=== PATIENT | female | born 1955 | race American Indian/Alaskan Native ===

== ENCOUNTER 2017-02-12 13:57 | Outpatient (CLI) | payer MEDICAID ==
--- NOTE | 2017-02-12 14:48 | XRay Report ---
Left hip 2 views. Findings: There is moderate to severe narrowing of the joint space. Bony mineralization is normal. No acute findings are seen. Markedly thick soft tissues are noted. Impression: Moderate osteoarthritis.
--- NOTE | 2017-02-13 10:22 | XRay Report ---
XRAY LEFT HIP THREE VIEWS: 02/12/17 13:57:00 CLINICAL: Left hip pain. The patient had a standing examination done earlier and returned for a supine examination. FINDINGS: Moderate osteoarthritis of the left hip with superior joint space narrowing and acetabular eburnation with a small superolateral osteophytes. No fracture or dislocation. Similar osteoarthritis in the right hip. The pelvic bones are intact. Normal SI joints. Normal soft tissues. IMPRESSION: Moderate osteoarthritis of both hips.
== END 2017-02-12 13:58 | disposition home or self-care (01) ==
LOC: SPVIMAG 13:57
PROVIDERS: ATTEND Orthopaedic Surgery Sports Medicine
DX: M16.0 Bilateral primary osteoarthritis of hip (principal); I10 Essential (primary) hypertension; J45.909 Unspecified asthma, uncomplicated

== ENCOUNTER 2018-01-08 09:40 | Outpatient (CLI) | payer MEDICAID ==
[2018-01-08 10:20] LABS: Blood Urea Nitrogen 19 mg/dL (7-17)
--- NOTE | 2018-01-08 13:48 | Cat Scan Report ---
CT HEAD WITH AND WITHOUT CONTRAST: HISTORY: Headaches, dizziness. TECHNIQUE: Sequential CT images with contrast. FINDINGS: Images obtained show bilateral prominence of the sulci and ventricles. There are no abnormal intra- or extra-axial blood or fluid collections. There are no focal masses or evidence of mass effect. The joya white matter differentiation appears within normal limits. Regions of periventricular decreased attenuation are consistent with microangiopathic ischemic disease. The posterior fossa structures including the fourth ventricle, cerebellum, and brainstem appear normal. No abnormal enhancement following IV contrast. IMPRESSION: Evidence of atrophy and microangiopathic ischemic disease. No acute intracranial process noted.
== END 2018-01-08 09:41 | disposition home or self-care (01) ==
LOC: CT 09:40
PROVIDERS: ATTEND Internal Medicine
DX: I99.8 Other disorder of circulatory system (principal); G31.9 Degenerative disease of nervous system, unspecified; I10 Essential (primary) hypertension; J45.909 Unspecified asthma, uncomplicated; M19.90 Unspecified osteoarthritis, unspecified site
CPT/HCPCS: 36415; 70470; 82565; 84520; Q9967

== ENCOUNTER 2018-08-28 07:39 | Outpatient (CLI) | payer MEDICAID ==
[2018-08-28 08:19] LABS: BUN/Creatinine Ratio 24; Blood Urea Nitrogen 22 mg/dL (7-17); Calcium 8.8 mg/dL (8.4-10.2); Hemolysis Index 1
--- NOTE | 2018-08-28 09:37 | XRay Report ---
AP PELVIS: HISTORY: pain. Normal bone mineralization. No evidence for pelvic fracture, bone lesion or diastasis. Moderate osteoarthritic changes are identified at both hips. No evidence for osteonecrosis. IMPRESSION: Moderate osteoarthritis of both hips.
--- NOTE | 2018-08-28 09:38 | XRay Report ---
KNEES STANDING AP BILATERAL History: Pain. Findings: Normal bone mineralization. No significant varus or valgus deformity. Kals-rh-zokpcqin osteoarthritic changes are identified which are most pronounced in the medial compartment of both knees. Mild tibial spine spurring is also identified. No fracture or bone lesion is appreciated. Impression: Mild to moderate osteoarthritis in both knees.
== END 2018-08-28 07:40 | disposition home or self-care (01) ==
LOC: XRAY 07:39
PROVIDERS: ATTEND Orthopaedic Surgery
DX: M17.0 Bilateral primary osteoarthritis of knee (principal); M16.0 Bilateral primary osteoarthritis of hip; I10 Essential (primary) hypertension; J45.909 Unspecified asthma, uncomplicated
CPT/HCPCS: 36415; 72170; 73565; 80048; 83735

== ENCOUNTER 2019-01-22 06:52 | Emergency (ER) | payer MEDICARE ==
--- NOTE | 2019-01-22 08:26 | Emergency Department Report ---
ED General Adult HPI - General Chief complaint: Dizziness Stated complaint: DIZZINESS Time Seen by Provider: 01/22/19 08:03 Source: patient Mode of arrival: Wheelchair Limitations: No Limitations - History of Present Illness Initial comments: This is a 63-year-old female with somewhat recurrent symptoms. She states that she had similar symptoms and was told she was dehydrated a month ago. She's had similar such episodes. She states that she is prediabetic. She states that she vomited 3 times beginning at 10:00 yesterday but not recently. She is not complaining of ongoing nausea. She had some lower abdominal discomfort while she was vomiting but it did not persist. She complains of vague dizziness. She did not take her blood pressure medicine today. She denies fever or chills. She has had fever or chills. He denies headache. She denies any focal neurological change or difficulty with coordination or gait. She says that she's had several similar episodes of vomiting and dizziness. -: Gradual, hour(s) Location: abdomen (as above described in the suprapubic area) Severity scale (0 -10): 0 Quality: aching Consistency: now resolved Improves with: none Worsens with: none Associated Symptoms: denies other symptoms, weakness (weakness and dizziness) Treatments Prior to Arrival: none (did not take blood pressure medicine) - Related Data Home Medications Medication Instructions Recorded Confirmed Last Taken Tramadol HCl [traMADol] 1 tab PO PRN 03/22/14 03/22/14 Unknown dilTIAZem CD [Cardizem CD] 1 cap PO DAILY 03/22/14 03/22/14 03/22/14 Allergies Allergy/AdvReac Type Severity Reaction Status Date / Time sulfamethoxazole Allergy Swelling Verified 03/22/14 14:49 [From Bactrim] trimethoprim [From Bactrim] Allergy Swelling Verified 03/22/14 14:49 ED Review of Systems ROS: Stated complaint: DIZZINESS Other details as noted in HPI Constitutional: weakness. denies: chills, fever Eyes: denies: eye pain, eye discharge, vision change ENT: denies: ear pain, throat pain Respiratory: denies: cough, shortness of breath, wheezing Cardiovascular: denies: chest pain, palpitations Endocrine: no symptoms reported Gastrointestinal: as per HPI, abdominal pain, nausea, vomiting. denies: diarrhea Genitourinary: denies: urgency, dysuria, discharge Musculoskeletal: denies: back pain, joint swelling, arthralgia Skin: denies: rash, lesions Neurological: denies: headache, weakness, paresthesias Psychiatric: denies: anxiety, depression Hematological/Lymphatic: denies: easy bleeding, easy bruising ED Past Medical Hx - Past Medical History Hx Hypertension: Yes Hx Arthritis: Yes Hx Asthma: Yes Hx Tuberculosis: No Hx HIV: No Additional medical history: "Prediabetes" - Social History Smoking Status: Never Smoker Substance Use Type: Alcohol, Marijuana - Medications Home Medications: Home Medications Medication Instructions Recorded Confirmed Last Taken Type Tramadol HCl [traMADol] 1 tab PO PRN 03/22/14 03/22/14 Unknown History dilTIAZem CD [Cardizem CD] 1 cap PO DAILY 03/22/14 03/22/14 03/22/14 History ED Physical Exam - General Limitations: Physical Limitation General appearance: alert, in no apparent distress, obese - Head Head exam: Present: atraumatic, normocephalic - Eye Eye exam: Present: normal appearance. Absent: scleral icterus - ENT ENT exam: Present: mucous membranes moist - Neck Neck exam: Present: normal inspection. Absent: tenderness, meningismus - Respiratory Respiratory exam: Present: normal lung sounds bilaterally. Absent: respiratory distress - Cardiovascular Cardiovascular Exam: Present: regular rate, normal rhythm. Absent: systolic murmur, diastolic murmur, rubs, gallop - GI/Abdominal GI/Abdominal exam: Present: soft, normal bowel sounds. Absent: distended, tenderness, guarding, rebound, rigid - Extremities Exam Extremities exam: Present: normal inspection - Back Exam Back exam: Present: normal inspection - Neurological Exam Neurological exam: Present: alert, oriented X3, CN II-XII intact. Absent: motor sensory deficit - Psychiatric Psychiatric exam: Present: normal affect, normal mood - Skin Skin exam: Present: warm, dry, intact, normal color. Absent: rash ED Course Vital Signs 01/22/19 01/22/19 01/22/19 06:57 07:16 07:55 Temperature 97.9 F 98.7 F Pulse Rate 100 H 95 H 81 Respiratory 20 18 Rate Blood Pressure 177/101 Blood Pressure 189/121 192/84 [Right] O2 Sat by Pulse 96 100 Oximetry 01/22/19 01/22/19 01/22/19 08:26 09:25 10:55 Temperature Pulse Rate Respiratory 14 Rate Blood Pressure Blood Pressure 181/80 173/84 [Right] O2 Sat by Pulse 99 Oximetry ED Medical Decision Making - Lab Data Result diagrams: 01/22/19 08:24 01/22/19 08:24 Laboratory Results - last 24 hr 01/22/19 01/22/19 01/22/19 08:24 08:24 08:24 WBC 5.0 RBC 4.12 Hgb 12.6 Hct 38.3 MCV 93 MCH 31 MCHC 33 RDW 15.4 H Plt Count 229 Lymph % (Auto) 26.0 [place] % (Auto) 8.4 H Eos % (Auto) 0.3 Baso % (Auto) 0.4 Lymph # 1.3 [place] # 0.4 Eos # 0.0 Baso # 0.0 Seg Neutrophils % 64.9 Seg Neutrophils # 3.3 PT 13.0 INR 0.99 APTT 28.2 Sodium 142 Potassium 3.5 L Chloride 104.9 Carbon Dioxide 26 Anion Gap 15 BUN 12 Creatinine 0.8 Estimated GFR > 60 BUN/Creatinine Ratio 15 Glucose 107 H Calcium 9.0 Magnesium 2.00 Total Bilirubin 0.20 Direct Bilirubin < 0.2 Indirect Bilirubin 0.0 AST 11 ALT 14 Alkaline Phosphatase 116 Total Protein 7.2 Albumin 3.9 Albumin/Globulin Ratio 1.2 - EKG Data -: EKG Interpreted by [facility] EKG shows normal: sinus rhythm, axis, intervals, QRS complexes, ST-T waves Rate: normal - EKG Data Interpretation: no acute changes - Radiology Data Radiology results: report reviewed (CT the head no acute process) Critical care attestation.: If time is entered above; I have spent that time in minutes in the direct care of this critically ill patient, excluding procedure time. ED Disposition Clinical Impression: Generalized weakness, Poorly controlled blood pressure Disposition: DC-01 TO HOME OR SELFCARE Is pt being admited?: No Does the pt Need Aspirin: No Condition: Stable Instructions: Hypertension (ED), Weakness (ED) Additional Instructions: Transferred to the emergency department any acute change or problem. Follow-up with Dr. Black. Be sure to take blood pressure medication. Recommend 2 baby aspirin a day. Referrals: PRIMARY CARE, [Primary Care Provider] - 2-3 Days EBRKLEY BLACK MD [Staff Physician] - 2-3 Days Time of Disposition: 12:14
[2019-01-22 08:44] LABS: Basophils % (Auto) 0.4 % (0.0-1.8); Eosinophils % (Auto) 0.3 % (0.0-4.3); Hematocrit 38.3 % (30.3-42.9); Hemoglobin 12.6 gm/dl (10.1-14.3); Lymphocytes # (Auto) 1.3 K/mm3 (1.2-5.4); Mean Corpuscular HGB Conc 33 % (30-34); Mean Corpuscular Volume 93 fl (79-97); Monocytes # (Auto) 0.4 K/mm3 (0.0-0.8); Monocytes % (Auto) 8.4 % (0.0-7.3); Platelet Count 229 K/mm3 (140-440); Red Blood Count 4.12 M/mm3 (3.65-5.03); Red Cell Distribution Width 15.4 % (13.2-15.2)
[2019-01-22 08:45] LABS: INR 0.99 (0.87-1.13)
[2019-01-22 08:46] LABS: Partial Thromboplastin Time 28.2 Sec. (24.2-36.6)
--- NOTE | 2019-01-22 08:51 | Cat Scan Report ---
CT HEAD WITHOUT CONTRAST INDICATION : Dizziness, OLIVA, elev BP. TECHNIQUE: Axial imaging performed from the skull apex through the skull base without the use of con trast. All CT scans at this location are performed using CT dose reduction for ALARA by means of aut omated exposure control. COMPARISON: 01/08/2018 FINDINGS: Parenchyma: No acute intracranial hemorrhage or parenchymal abnormality. Moderate chronic white león er hypodensities unchanged compared to the last exam. Chronic right basal ganglia infarcts. No mass, hemorrhage or edema. Ventricles: Ventricles are normal in size and appear symmetric. Soft tissues: Soft tissues including the orbits appear normal. Bones: No acute osseous abnormality. Sinuses: Sinuses and mastoid air cells are clear. IMPRESSION: 1. No acute change. 2. Moderate chronic white matter microangiopathy and chronic right basal ganglia infarcts. Signer Name: Noman Vee MD Signed: 01/22/2019 8:46 AM Workstation Name: [id number]
[2019-01-22 08:58] LABS: Alanine Aminotransferase 14 units/L (7-56); Albumin 3.9 g/dL (3.9-5); BUN/Creatinine Ratio 15; Blood Urea Nitrogen 12 mg/dL (7-17); Hemolysis Index 0
[2019-01-22 08:59] LABS: Bilirubin,Direct < 0.2 mg/dL (0-0.2)
[2019-01-22 10:56] VITALS: BP 173/84
[2019-01-22] MEDS ORDERED: amLODIPine 5 MG TAB PO ONE (12:15)
== END 2019-01-22 12:40 | disposition home or self-care (01) ==
LOC: ED 06:52
DX: R53.1 Weakness (principal); R42 Dizziness and giddiness; R11.10 Vomiting, unspecified; R10.30 Lower abdominal pain, unspecified; I10 Essential (primary) hypertension; M19.90 Unspecified osteoarthritis, unspecified site; J45.909 Unspecified asthma, uncomplicated; F12.10 Cannabis abuse, uncomplicated; Z88.2 Allergy status to sulfonamides
CPT/HCPCS: 36415; 70450; 80048; 80076; 83735; 85025; 85610; 85730; 93005; 93010

== ENCOUNTER 2020-01-18 11:31 | Emergency (ER) | payer MEDICARE ==
[2020-01-18 11:37] VITALS: BP 163/103
--- NOTE | 2020-01-18 11:39 | Emergency Department Report ---
Blank Doc - Documentation Documentation: 64-year-old female that presents generlzied fatigue and numbness. Patient sarita casas has not been taking metformin for a week. This initial assessment/diagnostic orders/clinical plan/treatment(s) is/are subject to change based on patient's health status, clinical progression and re- assessment by fellow clinical providers in the ED. Further treatment and workup at subsequent clinical providers discretion. Patient/guardians urged not to elope from the ED as their condition may be serious if not clinically assessed and managed. Initial orders include: 1- Patient sent to [facility] for further evaluation and treatment 2- labs 3- UA
[2020-01-18 12:27] LABS: Alanine Aminotransferase 20 units/L (7-56); Albumin 4.1 g/dL (3.9-5); BUN/Creatinine Ratio 23; Basophils % (Auto) 0.3 % (0.0-1.8); Blood Urea Nitrogen 18 mg/dL (7-17); Eosinophils % (Auto) 0.5 % (0.0-4.3); Hematocrit 38.7 % (30.3-42.9); Hemoglobin 12.7 gm/dl (10.1-14.3); Hemolysis Index 2; Lymphocytes # (Auto) 2.1 K/mm3 (1.2-5.4); Lymphocytes % (Auto) 33.4 % (13.4-35.0); Mean Corpuscular HGB Conc 33 % (30-34); Mean Corpuscular Volume 93 fl (79-97); Monocytes # (Auto) 0.6 K/mm3 (0.0-0.8); Monocytes % (Auto) 9.1 % (0.0-7.3); Platelet Count 264 K/mm3 (140-440); Red Blood Count 4.18 M/mm3 (3.65-5.03); Red Cell Distribution Width 16.1 % (13.2-15.2)
--- NOTE | 2020-01-18 12:57 | Emergency Department Report ---
ED General Adult HPI - General Chief complaint: Extremity Problem,Nontraumatic Stated complaint: CONGESTION/CHEST PX/LEG NUMB Time Seen by Provider: 01/18/20 11:36 Source: patient Mode of arrival: Ambulatory Limitations: No Limitations - History of Present Illness Initial comments: 64-year-old female, history of asthma, hypertension, diabetes, neuropathy, presents to ED with complaint of shortness of breath and tingling to her extremities. Patient states she is having tingling in bilateral hands and feet. Patient states this is consistent with her usual neuropathy. Patient states she was given a prescription for gabapentin, however does not take it because it causes her to have pain behind the eye. Patient also reports she is not taking her diabetes medication because it causes her to have a metallic taste in her mouth. Patient reports some wheezing and shortness of breath. States she has an inhaler and nebulizer machine at home, but she has not been using it for her shortness of breath. Patient states that all of the symptoms have been going on for the last 8 months. She states there has been no worsening or change in her symptoms that prompted her to come to the ED today. Patient states "I am just tired of feeling this way." Patient denies any fever, cough, vomiting, diarrhea, known exposure to anyone who has tested positive for COVID-19. -: month(s) (8) Location: chest, left, right, upper extremity, lower extremity Quality: other (Tingling) Consistency: intermittent Improves with: none Worsens with: none Associated Symptoms: shortness of breath. denies: chest pain, cough, fever/chills, nausea/vomiting - Related Data Home Medications Medication Instructions Recorded Confirmed Last Taken Tramadol HCl [traMADol] 1 tab PO PRN 03/22/14 03/22/14 Unknown dilTIAZem CD [Cardizem CD] 1 cap PO DAILY 03/22/14 03/22/14 03/22/14 Previous Rx's Medication Instructions Recorded Last Taken Type Albuterol Sulfate [Proventil Hfa] 2 puff IH Q4HR PRN #1 hfa.aer.ad 01/18/20 Unk nown Rx Allergies Allergy/AdvReac Type Severity Reaction Status Date / Time sulfamethoxazole Allergy Swelling Verified 03/22/14 14:49 [From Bactrim] trimethoprim [From Bactrim] Allergy Swelling Verified 03/22/14 14:49 ED Review of Systems ROS: Stated complaint: CONGESTION/CHEST PX/LEG NUMB Other details as noted in HPI Comment: All other systems reviewed and negative Constitutional: denies: chills, fever ENT: congestion (Nasal). denies: throat pain Respiratory: shortness of breath. denies: cough Cardiovascular: denies: chest pain Gastrointestinal: denies: vomiting, diarrhea Neurological: paresthesias ED Past Medical Hx - Past Medical History Previous Medical History?: Yes Hx Hypertension: Yes Hx Diabetes: Yes Hx Arthritis: Yes Hx Asthma: Yes Hx Tuberculosis: No Hx HIV: No Additional medical history: "Prediabetes" - Social History Smoking Status: Never Smoker Substance Use Type: Alcohol, Marijuana - Medications Home Medications: Home Medications Medication Instructions Recorded Confirmed Last Taken Type Tramadol HCl [traMADol] 1 tab PO PRN 03/22/14 03/22/14 Unknown History dilTIAZem CD [Cardizem CD] 1 cap PO DAILY 03/22/14 03/22/14 03/22/14 History Albuterol Sulfate [Proventil Hfa] 2 puff IH Q4HR PRN #1 hfa.aer.ad 01/18/20 Unknown Rx ED Physical Exam - General Limitations: No Limitations General appearance: alert, in no apparent distress, obese - Head Head exam: Present: atraumatic, normocephalic - Eye Eye exam: Present: normal appearance, EOMI - ENT ENT exam: Present: mucous membranes moist - Neck Neck exam: Present: normal inspection - Respiratory Respiratory exam: Present: normal lung sounds bilaterally. Absent: respiratory distress - Cardiovascular Cardiovascular Exam: Present: regular rate, normal rhythm - GI/Abdominal GI/Abdominal exam: Present: soft. Absent: distended, tenderness - Extremities Exam Extremities exam: Present: normal inspection. Absent: pedal edema, calf tenderness - Neurological Exam Neurological exam: Present: alert, oriented X3 - Psychiatric Psychiatric exam: Present: normal affect, normal mood - Skin Skin exam: Present: warm, dry, intact, normal color ED Course Vital Signs 01/18/20 01/18/20 11:36 12:45 Temperature 98.6 F Pulse Rate 97 H Respiratory 24 20 Rate Blood Pressure 163/103 [Right] O2 Sat by Pulse 98 98 Oximetry ED Medical Decision Making - Lab Data Result diagrams: 01/18/20 11:52 01/18/20 11:52 - Radiology Data Radiology results: report reviewed, image reviewed - Medical Decision Making 64-year-old female presents to ED for chronic issues have been ongoing for 8 months. This includes paresthesias secondary to her known diabetic neuropathy, for which she is noncompliant with her gabapentin. She also reports some wheezing and shortness of breath, patient has known asthma, and prescriptions for inhaler and nebulizer, but states she does not use them. Patient is currently in no respiratory distress, O2 sats are normal. Chest x-ray is unremarkable. Labs are normal. Outpatient follow-up is advised. Patient will be discharged at this time. Return precautions given. Critical care attestation.: If time is entered above; I have spent that time in minutes in the direct care of this critically ill patient, excluding procedure time. ED Disposition Clinical Impression: Neuropathy, Asthma Disposition: - TO HOME OR SELFCARE Is pt being admited?: No Condition: Stable Instructions: Asthma (ED) Prescriptions: Albuterol Sulfate [Proventil Hfa] 2 puff IH Q4HR PRN #1 hfa.aer.ad PRN Reason: Wheezing Referrals: PRIMARY CARE, [Primary Care Provider] - 3-5 Days [facility] [Provider Group] - 3-5 Days Time of Disposition: 14:32
--- NOTE | 2020-01-18 14:30 | XRay Report ---
CHEST 2 VIEWS INDICATION: sob. COMPARISON: 07/15/2019 FINDINGS: Support devices: None. Heart: Within normal limits. Cardiomegaly has resolved since the previous exam. Lungs/pleura: No acute air space or interstitial disease. No pneumothorax. Additional findings: None. IMPRESSION: No acute findings. Signer Name: Tyree Izaguirre Jr, MD Signed: 01/18/2020 2:26 PM Workstation Name: [id number]
== END 2020-01-18 15:05 | disposition home or self-care (01) ==
LOC: ED 11:31
DX: J45.909 Unspecified asthma, uncomplicated (principal); G62.9 Polyneuropathy, unspecified; E11.40 Type 2 diabetes mellitus with diabetic neuropathy, unspecified; I10 Essential (primary) hypertension; M19.90 Unspecified osteoarthritis, unspecified site; F12.90 Cannabis use, unspecified, uncomplicated; Z79.899 Other long term (current) drug therapy; Z88.2 Allergy status to sulfonamides; Z88.8 Allergy status to other drugs, medicaments and biological substances
CPT/HCPCS: 36415; 71046; 80053; 82805; 82962; 85025

== ENCOUNTER 2020-07-21 09:56 | Outpatient (CLI) | payer MEDICARE ==
[2020-07-21 10:55] LABS: Blood Urea Nitrogen 27 mg/dL (7-17)
--- NOTE | 2020-07-21 12:19 | Cat Scan Report ---
CT lumbar spine w con INDICATION: Back pain. TECHNIQUE: Axial CT images of the lumbar spine were obtained. Sagittal and coronal reformatted images were produ jaspreet. All CT scans at this location are performed using CT dose reduction for ALARA by means of automa yessenia exposure control. COMPARISON: None available. FINDINGS: ALIGNMENT: Normal alignment. VERTEBRAE: No fracture. Vertebral body heights are preserved. SPONDYLOSIS: Patient has a congenitally small spinal canal. Multilevel spondylosis is present. Multil evel moderate facet arthropathy from L2-L3 to L5-S1 is present throughout the lumbar spine with assoc iated foraminal narrowing. Severe right L2-L3 and bilateral L4-5 osseous foraminal narrowing. Moderat e L3-L4 foraminal narrowing. SOFT TISSUES: No significant soft tissue abnormality. ADDITIONAL FINDINGS: No significant additional findings. IMPRESSION: 1. Multilevel facet arthropathy with severe right L2-L3 and bilateral L4-5 foraminal narrowing. Corre late for right L2 and bilateral L4 nerve root symptoms. Signer Name: Donald Malcolm MD Signed: 07/21/2020 12:15 PM Workstation Name: [id number]
== END 2020-07-21 09:57 | disposition home or self-care (01) ==
LOC: CT 09:56
PROVIDERS: ATTEND Internal Medicine
DX: M47.816 Spondylosis without myelopathy or radiculopathy, lumbar region (principal); R91.1 Solitary pulmonary nodule; M48.061 Spinal stenosis, lumbar region without neurogenic claudication
CPT/HCPCS: 36415; 72132; 82565; 84520; Q9967

== ENCOUNTER 2020-08-17 10:30 | Outpatient (CLI) | payer MEDICARE | END 2020-08-17 10:31 | disposition home or self-care (01) | LOC: CT 10:30 | DX: R91.1 Solitary pulmonary nodule (principal); K76.0 Fatty (change of) liver, not elsewhere classified; N28.1 Cyst of kidney, acquired; M47.814 Spondylosis without myelopathy or radiculopathy, thoracic region | CPT/HCPCS: 36415; 71260; 82565; 84520; Q9967 ==